=== PATIENT | female | born 1940 | race Caucasian/White ===

== ENCOUNTER 2017-02-01 08:06 | Day surgery (SDC) | payer MEDICARE, OTHER ==
--- NOTE | ~2017-02-01 | OP ---
Record Of Operation [facility] [address] [place]. [address] NAME: PAULINA HARRIS : 44 STATUS : [facility]#: [id number] AGE: 76 ADM/REG DATE : 02/01/17 MR#: [id number] REPORT SERV DATE: 02/02/17 DICTATED BY: LIANG KIRBY III DATE: 02/01/17 REPORT STATUS : Draft TRANSCRIBED BY: MODL DATE: 02/01/17 DATE OF PROCEDURE: 02/01/2017 PREOPERATIVE DIAGNOSIS: End-stage renal disease, dialysis dependent, with need for peritoneal dialysis catheter placement. OPERATIVE DIAGNOSIS: End-stage renal disease, dialysis dependent, with need for peritoneal dialysis catheter placement. PROCEDURE: Laparoscopic peritoneal dialysis catheter placement. SURGEON: Dr. Demetrius Kirby. ANESTHESIA: General with intubation. COMPLICATIONS: None. ESTIMATED BLOOD LOSS: Less than 5 mL. SPECIMENS: None. DRAINS: None. LAP AND SPONGE COUNT: Correct x3. BRIEF HISTORY: This 76-year-old female has a history of end-stage renal disease. She is currently dependent on hemodialysis, but preferred to have peritoneal dialysis as her primary mode of treatment. It was felt that laparoscopic peritoneal dialysis catheter placement, possible laparotomy, was indicated. This procedure, the risks, benefits, and alternatives, including but not limited to the risk for bleeding, infection, enterotomy, injury to any abdominal structure, postop small bowel obstruction, ileus, incisional hernia, dehiscence, failure of the catheter to function, migration or occlusion of the catheter requiring revision or replacement, infection of the catheter, peritonitis requiring removal or leakage of the catheter from around the incisions, possible need for laparotomy, possibility that she may not be a candidate for peritoneal dialysis and unforeseen complications including deep venous thrombosis, pulmonary embolus, myocardial infarction, stroke, pneumonia, and , were fully and completely explained to the patient and her family at length prior to surgery. The fact that this was a major operation with risk for major morbidity and mortality has been explained as well as expected length of recovery. The patient questions were answered. She understood the risks and agreed to surgery as planned. PROCEDURE IN DETAIL: After being appropriately identified and after discussing risks of surgery with the patient and her family again in the preoperative area, she was taken to the operating room and placed in the supine position on the operating room table. General anesthesia was administered and she was intubated without difficulty. The abdomen was Record Of Operation [place] [id number] [facility] [place]. [address] NAME: PAULINA HARRIS : 44 STATUS : [facility]#: [id number] AGE: 76 ADM/REG DATE : 02/01/17 MR#: [id number] REPORT SERV DATE: 02/02/17 DICTATED BY: LIANG KIRBY III DATE: 02/01/17 REPORT STATUS : Draft TRANSCRIBED BY: MODSathya DATE: 02/01/17 prepped and draped sterilely in the usual fashion. After an appropriate "time-out" [facility], a small transverse incision was made just below the umbilicus. The skin and fascia on either side of this were elevated with towel clips. A Veress needle was placed through the incision into the peritoneal cavity. Correct position of the needle in peritoneal cavity was confirmed by the hanging drop test. The abdominal cavity was then insufflated to about 13 mmHg of carbon dioxide. Correct position of the air in the peritoneal cavity was confirmed by palpation. The Veress needle was removed and replaced with a 10-mm trocar. The laparoscope was placed through this. The abdomen was inspected. There was no evidence for carcinomatosis or malignancy or any unusual findings. A 5-mm trocar was then placed to the right of the midline, slightly above the navel, under direct vision with the laparoscope. A 5-mm laparoscope was now placed through this 5-mm trocar. The patient was placed in the Trendelenburg position. The peritoneal dialysis catheter was then placed through the 10-mm infraumbilical trocar. It was placed in the pelvis. The catheter was secured in position in the midline with a transfascial 0 Prolene suture placed in suprapubic area, under direct vision with the laparoscope. The catheter was in correct position in the pelvis in the rectal cul-de-sac. The 10-mm trocar was removed under direct vision with laparoscope to assure hemostasis. The 5-mm trocar was then removed under direct vision with the laparoscope. The inner cuff of the peritoneal dialysis catheter was then secured with a 0 Prolene pursestring at the level of the fascia. A subcutaneous tunnel was then made between the two trocar sites and the end of the dialysis catheter was brought out through the right lateral abdominal wall catheter. The second cuff was left in the subcutaneous tissue. The catheter was connected to 500 mL bag of saline. The saline was allowed to flow through the catheter and was noted to flow easily and rapidly with no resistance or occlusion. The saline bag was then placed to the ground and the fluid was allowed to egress out of the abdominal cavity by gravity. It egress rapidly with no resistance. Hemostasis was assured. The subcutaneous tissue was closed with running 3-0 chromic suture. The skin was closed with running subcuticular 4-0 Monocryl stitch. Dressings were applied. Anesthesia was reversed and the patient was taken to the recovery room in stable condition. She tolerated the procedure well. Her family was informed the results of surgery. The patient was discharged when stable and comfortable. Her family was advised that she should keep wounds clean and dry for two weeks, that she should resume her usual medications, that she should not drive for two to three days after surgery or while using narcotics. She was asked to return to see the peritoneal dialysis catheter nurse in one week and return to see me in two weeks for followup or sooner if any nausea, vomiting, fever, chills, wound drainage, abdominal pain, weakness, or other problems prior to that time. She was given prescription for Percocet 7.5 one t.i.d., #12, as needed for pain, which she was advised not to use while driving. KEV/KATARINA Record Of [address] [address] NAME: PAULINA HARRIS : 44 STATUS : [facility] PAT#: [id number] AGE: 76 ADM/REG DATE : 02/01/17 MR#: [id number] REPORT SERV DATE: 02/02/17 DICTATED BY: LIANG KIRBY III DATE: 02/01/17 REPORT STATUS : Draft TRANSCRIBED BY: KATARINA DATE: 02/01/17 Liang Kirby III, M.D. / [id number] CC: Rupa Rivera III, M.D.
--- NOTE | ~2017-02-01 | HP ---
History And Physical [address] [place]. [address] NAME: PAULINA HARRIS : 44 STATUS : [facility]#: [id number] AGE: 76 ADM/REG DATE : 02/01/17 MR#: [id number] REPORT SERV DATE: 02/23/17 DICTATED BY: LIANG KIRBY III DATE: 01/18/17 REPORT STATUS : Draft TRANSCRIBED BY: MODL DATE: 01/18/17 DATE OF ADMISSION: 02/01/2017 HISTORY OF PRESENT ILLNESS: This 76-year-old female comes to the operating room for laparoscopic peritoneal dialysis catheter placement, possible laparotomy. The patient has a history of end-stage renal disease. She is currently on hemodialysis and has been so for about one year. The patient prefers peritoneal dialysis and comes now for laparoscopic peritoneal dialysis catheter placement, possible laparotomy. PAST MEDICAL HISTORY: 1. End-stage renal disease, dialysis dependent. 2. Hypertension. 3. History of non-Hodgkin's lymphoma in 2007, with no evidence for disease. 4. Hyperlipidemia. 5. Hypothyroidism. 6. Diabetes mellitus. 7. History of congestive heart failure. MEDICATIONS: Lasix, amlodipine, calcium, carvedilol, insulin, isosorbide, levothyroxine, paroxetine, simvastatin, temazepam. ALLERGIES: CODEINE. FAMILY HISTORY: Positive for diabetes and heart disease. SOCIAL HISTORY: No history of tobacco or alcohol use. REVIEW OF SYSTEMS: The patient complains of swelling in her hands and feet. At times, her 14-point review of systems otherwise unremarkable. PHYSICAL EXAMINATION: GENERAL: Pleasant, somewhat obese female, in no acute distress. She is alert and oriented x3. VITAL SIGNS: Blood pressure 124/67, pulse 80, temperature 98.7. HEENT: Unremarkable. CRANIAL NERVES: II through XII are normal. LUNGS: Clear. CARDIAC: Normal. ABDOMEN: Soft. Nontender. No masses. EXTREMITIES: Unremarkable at this time with no edema. ASSESSMENT: 1. This is a 76-year-old female with end-stage renal disease, with need for peritoneal dialysis catheter placement. History And Physical [address] [address] NAME: PAULINA HARRIS : 44 STATUS : [facility] PAT#: [id number] AGE: 76 ADM/REG DATE : 02/01/17 MR#: [id number] REPORT SERV DATE: 02/23/17 DICTATED BY: LIANG KIRBY III DATE: 01/18/17 REPORT STATUS : Draft TRANSCRIBED BY: KATARINA DATE: 01/18/17 2. Hypothyroidism. 3. Diabetes mellitus. 4. Hyperlipidemia. 5. Hypertension. 6. History of congestive heart failure. PLAN: The patient comes to the operating room now for laparoscopic peritoneal dialysis catheter placement, possible laparotomy. This procedure, the risks, benefits, and alternatives, including not limited to the risk for bleeding, infection, enterotomy, injury to abdominal structure, postop small bowel obstruction or ileus, failure of the catheter to function, infection of the catheter or peritonitis requiring removal of the catheter, dislodgement of the catheter requiring revision or replacement, possibility that she may not be a candidate for peritoneal dialysis and unforeseen complications including deep venous thrombosis, pulmonary embolus, myocardial infarction, stroke, pneumonia, and , have been explained to the patient prior to the surgery. Her questions have been answered. She understands the risks and agrees to the surgery as planned. KEV/KATARINA Liang Kirby III, M.D. / [id number]
[~2017-02-01 08:06] MED LIST: ACET500CAP PO; ADVIL PO; ALTA5 PO; ALTACE10 MG PO; AMARYL4 PO; B121000P IM; CINNAMONPO PO; COREG12 PO; COREG6 PO; CRANBERRY500 MG PO; FORTAMET500 MG PO; GLUCPH PO; HALF81 PO; IMDUR30 PO; KLOR-CON 1010 MEQ PO; KLOR-CON M1010 MEQ PO; L20 PO; LEVEMFLXPN SC; LEVEMIR SC; LEVOTHYROXIN50 MCG PO; LEVOTHYROXIN75 MCG PO; MAXZIDE PO; MCZ25 PO; NEUR100 PO; NEUR300 PO; NEUR600 PO; NORV10 PO; NOVOLOG SC; NOVOPEN SC; PAX20 PO; PAXIL40 MG PO; SODBICAR10 PO; SYN1 PO; SYN88 PO; ZOCOR20 PO
[2017-02-01 08:43] LABS: BASOPHILS 0.3 %; BASOPHILS ABSOLUTE 0.02 10/3/uL (0.0-0.16); EOSINOPHILS 1.9 %; EOSINOPHILS ABSOLUTE 0.13 10/3/uL (0.0-0.53); HEMOGLOBIN 12.9 g/dL (12.0-16.0); IMMATURE GRANULOCYTES 0.1 %; IMMATURE GRANULOCYTES ABSOLUTE 0.01 10/3/uL (0.0-0.11); LYMPHOCYTES 27.6 %; LYMPHOCYTES ABSOLUTE 1.93 10/3/uL (0.67-4.30); MEAN CORPUS HGB CONC 33.7 g/dL (32.0-36.0); MEAN CORPUSCULAR HEMOGLOB 33.9 pg (26.0-34.0); MEAN CORPUSCULAR VOLUME 100.8 fL (80-100); MEAN PLATELET VOLUME 10.1 fL (9.2-13.0); MONOCYTES 6.4 %; MONOCYTES ABSOLUTE 0.45 10/3/uL (0.21-1.20); NEUTROPHILS 63.7 %; NEUTROPHILS ABSOLUTE 4.45 10/3/uL (2.02-8.40); PLATELET COUNT 220 10/3/uL (150-400); RBC DISTRIBUTION WIDTH 13.5 % (12.0-16.0)
[2017-02-01 08:44] LABS: HEMATOCRIT 38.3 % (36.0-48.0); MANUAL DIFF NO %
[2017-02-01 08:54] LABS: CALCIUM, SERUM 9.2 MG/DL (8.5-10.4); CHLORIDE, SERUM 99 MMOL/L (96-112); CO2 (CARBON DIOXIDE) 31 MMOL/L (24-34); POTASSIUM, SERUM 3.9 MMOL/L (3.5-5.3); SGOT(AST) 9 U/L (5-40); SGPT(ALT) 12 U/L (5-65); SODIUM, SERUM 138 MMOL/L (135-148); TOTAL BILIRUBIN 0.4 MG/DL (0-1.2); TOTAL PROTEIN 7.2 G/DL (6.0-8.5)
[2017-02-01 08:55] LABS: A/G RATIO 1.1 (0.7-1.9); ALBUMIN 3.7 G/DL (3.5-5.0); ALKALINE PHOSPHATASE 107 U/L (45-117); BUN (BLOOD UREA NITROGEN) 18 MG/DL (6-23); CREATININE 1.91 MG/DL (0.55-1.02); GFR AFRICAN AMERICAN 29 ML/MIN (>=60); GFR NON AFRICAN AMERICAN 25 ML/MIN (>=60); GLOBULIN 3.5 G/DL (2.5-4.1); GLUCOSE, SERUM 198 MG/DL (60-99)
== END 2017-02-01 14:54 | disposition home or self-care (01) ==
LOC: SDC 08:06
PROVIDERS: Surgery
PROC: 0WHG43Z Insertion of Infusion Device into Peritoneal Cavity, Percutaneous Endoscopic Approach (ICD-10-PCS; principal; 2017-02-01 10:00)
DX: I12.0 Hypertensive chronic kidney disease with stage 5 chronic kidney disease or end stage renal disease (principal); E11.22 Type 2 diabetes mellitus with diabetic chronic kidney disease; E11.40 Type 2 diabetes mellitus with diabetic neuropathy, unspecified; N18.6 End stage renal disease; M19.90 Unspecified osteoarthritis, unspecified site; E78.5 Hyperlipidemia, unspecified; E03.9 Hypothyroidism, unspecified; F41.9 Anxiety disorder, unspecified; Z88.5 Allergy status to narcotic agent; Z79.899 Other long term (current) drug therapy; Z79.4 Long term (current) use of insulin; Z96.653 Presence of artificial knee joint, bilateral; Z98.41 Cataract extraction status, right eye; Z98.42 Cataract extraction status, left eye; Z98.890 Other specified postprocedural states
CPT/HCPCS: 80053; 82962; 85025; 93005; A9270-GY; C1752; J0690; J2250; J2270; J2370; J2405; J2710; J3010